=== PATIENT | female | born 1965 | race Two or more races ===

== ENCOUNTER 2023-03-25 09:40 | Emergency (ER) | payer MEDICAID ==
[~2023-03-25] VITALS: Ht 165.1 cm; Wt 118.2 kg
[2023-03-25] MEDS ORDERED: EPINEPHrine HCL 1 MG/1 ML AMP SC ONE (10:30)
[2023-03-25 10:43] VITALS: O2SAT 98
[2023-03-25] MEDS ORDERED: PRED20TA2 PO (10:58)
[2023-03-25] MEDS ORDERED: HYDR50CA PO (10:58)
[2023-03-25 11:00] VITALS: BP 123/62; PULSE 78; RESP 18; O2SAT 98
== END 2023-03-25 11:03 | disposition home or self-care (01) ==
LOC: ER 09:40
DX: T78.40XA Allergy, unspecified, initial encounter (principal); Z88.6 Allergy status to analgesic agent; X58.XXXA Exposure to other specified factors, initial encounter
CPT/HCPCS: 96372; 99283; J0171